=== PATIENT | female | born 1955 | race Caucasian/White ===

== ENCOUNTER → 2024-04-01 | Outpatient (CLI) | payer MEDICARE, BC, SELFPAY ==
--- NOTE | 2024-04-01 11:00 | XR_ITS ---
Examination: Breast ultrasound, unilateral, left complete Date and time of exam: April 01, 2024 1108 hours INDICATIONS: Mammogram February 16, 2024 13 mm round mass lobular margins outer left breast CC view, 11.5 cm from the nipple Technique: Real-time cain scale ultrasonographic imaging performed left breast including all 4 quadrants as well as nipple retroareolar and axillary region. Findings: 1:00 cyst 2 x 3 mm 6:00 cyst 2 x 4 mm No solid nodules IMPRESSION: BI-RADS Category 2: Benign findings
--- NOTE | 2024-04-01 11:30 | XR_ITS ---
Examination: Diagnostic digital mammography, unilateral, left Computer aided detection 3-D breast Tomosynthesis, unilateral Date and time of exam: April 01, 2024 1137 hours INDICATIONS: Mammogram February 16, 2024 13 mm round mass lobular margins outer left breast CC view 11 cm from the nipple Technique: Nonmagnified MLO, CC views of the left breast have been obtained, reconstructed from 3-D Tomosynthesis images. R2 computer aided detection program utilized for evaluation of suspicious masses and/or abnormal calcifications. 3-D Tomosynthesis images obtained. Findings: The breast is heterogeneously dense, which may obscure small masses No suspicious masses confirmed on the spot compression views Impression: BI-RADS category 2: Benign findings Return to yearly follow-up mammography
== END | disposition home or self-care (01) ==
PROVIDERS: PCP Physician Assistant; Referring Provider Physician Assistant; Visit Provider Physician Assistant
DX: R92.322 Mammographic fibroglandular density, left breast (principal); N60.02 Solitary cyst of left breast
CPT/HCPCS: 76641; 77061; 77065; G0279

== ENCOUNTER → 2024-09-12 | Outpatient (CLI) | payer MEDICARE, BC, SELFPAY ==
--- NOTE | 2024-09-12 11:15 | XR_ITS ---
Examination: Abdomen sonogram, complete Date and time of exam: September 12, 2024 1119 hours Comparison April 27, 2023. Technique: Multiple real-time grayscale transabdominal sonographic images of the abdomen have been obtained. Indications: Right upper abdominal pain beginning 6 months ago FINDINGS: Normal gallbladder Normal common bile duct 0.3 cm Pancreatic head 2.6 cm Aorta not enlarged Liver 12.8 cm hypoechoic left lobe liver lesion 19 x 42 mm Normal hepatopedal portal venous flow Patent IVC Right kidney 11.3 cm cortex 1.2 cm Left kidney 10.2 cm cortex 1.3 cm Mild renal parenchymal scar formation Spleen 8.8 cm IMPRESSION: Left lobe liver lesion 19 x 42 x 19 mm which may represent a hemangioma Recommend CT abdomen liver follow-up pre and post three-phase contrast
== END | disposition home or self-care (01) ==
PROVIDERS: PCP Physician Assistant; Referring Provider Physician Assistant; Visit Provider Physician Assistant
DX: K76.9 Liver disease, unspecified (principal); N28.89 Other specified disorders of kidney and ureter
CPT/HCPCS: 76700

== ENCOUNTER → 2024-10-07 | Outpatient (CLI) | payer MEDICARE, BC, SELFPAY ==
--- NOTE | 2024-10-07 09:30 | XR_ITS ---
Examination: Upper GI series with KUB Esophagram standard Fluoroscopy 17 spot fluoroscopic films of the esophagus stomach and duodenum Date and time: October 07, 2024 0930 hours INDICATIONS: Heartburn abdominal pain 6 months TECHNIQUE AND FINDINGS: Industrial Design Engineer abdomen film supine demonstrates moderate stool throughout the colon No free air Patient swallowed thin barium with 17 spot fluoroscopic films of the esophagus stomach and duodenum Primary peristaltic esophageal waves Secondary and tertiary esophageal contractions Moderate intermittent gastroesophageal reflux. Retrocardiac gastric hernia There is no stricture at the gastroesophageal junction Peristalsis traverses the stomach normally. No gastric mass or ulceration No duodenal ulcer There is spasm and irritability involving the duodenal bulb IMPRESSION: Esophageal dysmotility Moderate intermittent gastroesophageal reflux Significant retrocardiac gastric hernia Active peptic disease duodenum bulb
== END | disposition home or self-care (01) ==
LOC: CDIM 09:25
PROVIDERS: PCP Family Medicine; Referring Provider Physician Assistant; Visit Provider Physician Assistant
DX: K21.9 Gastro-esophageal reflux disease without esophagitis (principal); K44.9 Diaphragmatic hernia without obstruction or gangrene; K30 Functional dyspepsia; K22.89 Other specified disease of esophagus
CPT/HCPCS: 74240; A4649

== ENCOUNTER → 2024-10-08 | Outpatient (CLI) | payer MEDICARE, BC, SELFPAY ==
[2024-10-08 16:30] LABS: Basophils # (Auto) 0.0 Thou/mm3 (0.0-0.2); Basophils % (Auto) 0 % (0-2.5); Eosinophils # (Auto) 0.0 Thou/mm3 (0.0-0.5); Eosinophils % (Auto) 0 % (0-10); Hematocrit 43.0 % (36.0-46.0); Hemoglobin 15.1 g/dL (12.0-16.0); Immature Granulocytes Auto 0.03 Thou/mm3 (0.00-0.00); Lymphocytes # (Auto) 1.1 Thou/mm3 (1.0-4.8); Lymphocytes % (Auto) 17 % (10-50); Mean Corpuscular HGB Conc 35.1 g/dl (31.0-37.0); Mean Corpuscular Hemoglobin 31.0 pg (25.0-35.0); Mean Corpuscular Volume 88 fL (80-100); Monocytes # (Auto) 0.2 Thou/mm3 (0.0-0.8); Monocytes % (Auto) 3 % (0-12); Neutrophils # (Auto) 5.2 Thou/mm3 (1.8-7.7); Neutrophils % (Auto) 80 % (37-80); Nucleated Red Blood Cell # 0.00 Thou/mm3 (0.00-0.00); Nucleated Red Blood Cell % 0 /100 WBC (0); Platelet Count 353 Thou/mm3 (140-440); RDW Standard Deviation 40.6 fL (36.4-46.3); Red Blood Count 4.87 Miln/mm3 (4.00-5.20); White Blood Count 6.5 Thou/mm3 (3.6-11.0)
[2024-10-08 16:46] LABS: Alanine Aminotransferase 32 U/L (10-49); Albumin, Serum 4.4 gm/dL (3.4-4.8); Albumin/Globulin Ratio 1.7 (1.2-2.2); Alkaline Phosphatase 79 U/L (46-116); Amylase 63 U/L (30-118); Anion Gap 10 (7-16); Aspartate Amino Transferase 27 U/L (0-34); BUN/Creatinine Ratio 15 Ratio (12-20); Bilirubin,Total 0.7 mg/dL (0.3-1.2); Blood Urea Nitrogen 15 mg/dL (9-23); Calcium 9.7 mg/dL (8.3-10.6); Calcium (Corrected) 9.7 mg/dL (8.5-10.1); Carbon Dioxide 28.0 mMol/L (20.0-31.0); Chloride 100 mMol/L (98-107); Creatinine (Component) 1.0 mg/dL (0.6-1.3); Globulin 2.6 gm/dL (2.3-3.5); Glucose 270 mg/dL (74-106); Lipase 38 U/L (12-53); Osmolality,Calculated 286 (275-295); Potassium 4.3 mMol/L (3.4-5.1); Sodium 138 mMol/L (136-145); Total Protein 7.0 gm/dL (5.7-8.2); eGFR > 60 See Note
[2024-10-08 17:21] LABS: Urea Breath Test Negative (Negative)
== END | disposition home or self-care (01) ==
LOC: COPL 15:14
PROVIDERS: PCP Family Medicine; Referring Provider Physician Assistant; Visit Provider Physician Assistant
DX: K21.9 Gastro-esophageal reflux disease without esophagitis (principal); R10.9 Unspecified abdominal pain
CPT/HCPCS: 36415; 80053; 82150; 83013; 83014; 83690; 85025

== ENCOUNTER → 2024-10-16 | Outpatient (CLI) | payer MEDICARE, BC, SELFPAY ==
[2024-10-16 10:44] LABS: Glucose Estimated Average 114 mg/dL (80-131); Hemoglobin A1C 5.6 % Hgb (4.8-6.0)
== END | disposition home or self-care (01) ==
LOC: COPL 08:43
PROVIDERS: PCP Family Medicine; Referring Provider Physician Assistant; Visit Provider Physician Assistant
DX: R73.01 Impaired fasting glucose (principal)
CPT/HCPCS: 36415; 83036

== ENCOUNTER → 2024-11-01 | Outpatient (CLI) | payer MEDICARE, BC, SELFPAY ==
--- NOTE | 2024-11-01 15:00 | XR_ITS ---
Examination: CT abdomen, without intravenous contrast. CT abdomen, with intravenous contrast. Sagittal and coronal 2-D reconstructions. Time of exam:November 01, 2024 1513 hours Comparison May 15, 2019 INDICATIONS: Diagnosis fatty liver, left lobe liver lesion 4.[address] study May 15, 2019 CTDI: vol (mGy) 49.9 DLP: (mGycm) 1381 Technique: Multiple 3.0 mm axial noncontrast images of the abdomen have been obtained. Multiple 3.0 mm axial images post administration 60 cc [id number] intravenous contrast have been obtained. Sagittal and coronal 3-D reconstructions have been obtained. Low dose protocols were performed. One or more of the following dose reduction techniques were used; automated exposure control, adjustment of the mA and/or KV according to patient size, use of iterative reconstruction technique. Findings: Fatty infiltration throughout the liver Stable left lobe liver lesion No biliary tract dilatation Spleen not enlarged Suspicious for tiny gallstones No pancreatic mass No renal or ureteral calculi, no hydronephrosis Aorta normal size No bowel obstruction Normal appendix IMPRESSION: Stable left lobe liver lesion Fatty infiltration throughout the liver Recommend repeat gallbladder sonography to confirm small gallstones
== END | disposition home or self-care (01) ==
LOC: CCTX 14:46
PROVIDERS: Referring Provider Physician Assistant; Visit Provider Physician Assistant
DX: K76.9 Liver disease, unspecified (principal); K76.0 Fatty (change of) liver, not elsewhere classified; K82.8 Other specified diseases of gallbladder
CPT/HCPCS: 74170; A4649; Q9967

== ENCOUNTER → 2024-12-06 | Outpatient (CLI) | payer MEDICARE, BC, SELFPAY | END | disposition home or self-care (01) | LOC: SLDO 14:43 | PROVIDERS: Referring Provider Physician Assistant; Visit Provider Physician Assistant | DX: N39.0 Urinary tract infection, site not specified (principal) | CPT/HCPCS: 87077; 87086; 87186 ==

== ENCOUNTER → 2024-12-10 | Outpatient (CLI) | payer MEDICARE, BC, SELFPAY ==
--- NOTE | 2024-12-10 15:45 | XR_ITS ---
Examination: Abdomen sonogram, Limited Date and time of exam: December 10, 2024 1542 hours INDICATIONS: Right upper abdominal pain beginning 3 months ago, suspicious for tiny gallstones on CT abdomen study November 01, 2024 Technique: Real-time cain scale transabdominal sonographic images of the upper abdomen obtained. Findings: Multiple gallstones Normal gallbladder wall 0.2 cm Normal common bile duct 0.2 cm Pancreatic head 1.8 cm Liver 13.6 cm irregular contour fatty infiltration, left lobe hyperechoic liver lesion with indistinct margins 5.9 x 3.1 x 3.8 cm Normal hepatopedal portal venous oh Patent IVC IMPRESSION: Cholelithiasis, negative for cholecystitis Recommend MRI abdomen follow-up pre and postcontrast to assess left lobe liver lesion 5.9 x 3.1 x 3.8 cm
== END | disposition home or self-care (01) ==
LOC: CDIM 15:26
PROVIDERS: PCP Family Medicine; Referring Provider Physician Assistant; Visit Provider Physician Assistant
DX: K80.20 Calculus of gallbladder without cholecystitis without obstruction (principal)
CPT/HCPCS: 76705

== ENCOUNTER 2024-12-30 08:00 | Day surgery (SDC) | payer MEDICARE, BC, SELFPAY ==
[2024-12-27 14:32] VITALS: BMI 28.8
[2024-12-30] VITALS (10 sets, daily range): BP systolic 106–175; BP diastolic 47–100; PULSE 64–81; RESP 9–18; TEMP 36.2–36.4; O2SAT 92–95; BMI 29.6
[2024-12-30] MEDS: SODIUM CHLORIDE 0.9% 500 ML 500 ML 20 ML IV (09:36)
[2024-12-30] MEDS: MIDAZOLAM INJ 1 MG/ML VIAL 2 ML (ASD USE ONLY) 2 MG IVP (09:36)
[2024-12-30] MEDS: fentaNYL CIT INJ 50 mCg/ML AMP 2ML (ASD USE ONLY) IVP (09:37)
[2024-12-30] MEDS: BENZOCAINE 20% (Hurricaine) SPRAY 1 DOSE TOP (09:47)
== END 2024-12-30 10:35 | disposition home or self-care (01) ==
PROVIDERS: PCP Family Medicine; Referring Provider Specialist; Visit Provider Specialist
PROC: (CPT 43239; principal; 2024-12-30 08:30)
DX: K22.2 Esophageal obstruction (principal); K22.10 Ulcer of esophagus without bleeding; I10 Essential (primary) hypertension; E03.9 Hypothyroidism, unspecified; F41.1 Generalized anxiety disorder; Z79.899 Other long term (current) drug therapy; Z79.890 Hormone replacement therapy; K29.50 Unspecified chronic gastritis without bleeding
CPT/HCPCS: 43248; 43239; A4649; C1769; J1200; J2250; J3010; J7999; A9270